=== PATIENT | female | born 1980 | race Two or more races ===

== ENCOUNTER 2018-11-27 06:24 | Emergency (ER) | payer OTHER ==
[~2018-11-27] VITALS: Ht 160 cm; Wt 65.3 kg
--- NOTE | 2018-11-27 06:45 | NUR ---
PT BIBSELF COMPLAINING OF PELVIC/ABD PAIN X 2 HOURS. PT STATES SHE PASSED OUT FROM THE PAIN. PT AXO4. RESPIRATIONS EVEN AND UNLABORED. PT PUT ON THE RETICLE PRINTER AND PULSE OX.
--- NOTE | 2018-11-27 06:49 | NUR ---
PT AMBULATORY WITH STEADY GAIT TO BATHROOM, URINE SAMPLE OBTAINED AND SENT TO LAB.
--- NOTE | 2018-11-27 06:50 | NUR ---
MATT PEÑALOZA AT BEDSIDE.
[2018-11-27] MEDS ORDERED: KETOROLAC TROMETHAMINE INJ 30 MG/ML VIAL IV ONE (07:00)
[2018-11-27] MEDS ORDERED: IV NS 0.9% 1,000 ML BAG IV ONE (07:00)
[2018-11-27 07:04] LABS: APPEARANCE,URINE SL CLOUDY (CLEAR); BILIRUBIN,URINE NEGATIVE (NEGATIVE); BLOOD, URINE 3+ Ery/uL (NEGATIVE); COLOR,URINE YELLOW (YELLOW); KETONES,URINE NEGATIVE (NEGATIVE); LEUKOCYTE ESTERASE ,URINE NEGATIVE (NEGATIVE); NITRITE, URINE NEGATIVE (NEGATIVE); PROTEIN,URINE TRACE mg/dl (NEGATIVE); UGLUCOSE NEGATIVE (NEGATIVE); UROBILINOGEN,URINE 0.2 EU/dL (0.2)
[2018-11-27 07:09] LABS: BACTERIA,URINE Few /HPF (None Seen); RBC,URINE TOO NUMEROUS TO COUN /HPF (0-2); SQUAMOUS EPITHELIAL CELL,UR Few /HPF (None Seen); WBC,URINE NONE SEEN /HPF (0-3)
[2018-11-27 07:09] LABS: BASOPHILS # (AUTO) 0.1 /CMM (0.0-0.2); BASOPHILS % (AUTO) 1.3 % (0.0-2.0); EOSINOPHILS % (AUTO) 3.1 % (0.0-6.0); HEMATOCRIT 40 % (33-45); HEMOGLOBIN 13.1 g/dL (11.5-14.8); LYMPHOCYTES # (AUTO) 1.1 /CMM (0.8-4.8); MEAN CORPUSCULAR HGB CONC 33 g/dl (31.0-36.0); MEAN CORPUSCULAR VOLUME 97 fL (82-100); MONOCYTES # (AUTO) 0.4 /CMM (0.1-1.30); MONOCYTES % (AUTO) 6.3 % (2.0-12.0); NEUTROPHILS # (AUTO) 4.3 /CMM (1.8-8.9); NEUTROPHILS % (AUTO) 71.3 % (43.0-81.0); PLATELET COUNT (AUTO) 246 /CMM (150-450); RED BLOOD CELL COUNT(AUTO) 4.12 MIL/uL (4.0-5.2)
[2018-11-27] MEDS ORDERED: KETOROLAC TROMETHAMINE INJ 30 MG/ML VIAL ONE (07:11)
[2018-11-27 07:15] LABS: CALCIUM, SERUM 8.3 mg/dL (8.5-10.1); CREATININE 0.9 mg/dL (0.6-1.3); POTASSIUM 4.2 mmol/L (3.5-5.1)
--- NOTE | 2018-11-27 07:20 | NUR ---
REPORT GIVEN TO LORE MEZA FOR [facility].
[2018-11-27 07:27] LABS: ALBUMIN 3.8 g/dL (3.4-5.0); BILIRUBIN,DIRECT 0.1 mg/dL (0.0-0.2); BILIRUBIN,TOTAL 0.4 mg/dL (0.2-1.0)
--- NOTE | 2018-11-27 08:37 | NUR ---
DISCHARGE INSTRUCTIONS GIVEN AND PATIENT VERBALIZED UNDERSTANDING. IV REMOVED WITH MINIMAL BLEEDING NOTED. PRESSURE DRESSING PLACED ON SITE. LEFT ER IN STABLE CONDITION AMBULATORY. NO SKIN BREAKDOWN, NO ACUTE DISTRESS, NO C/O PAIN OR DISCOMFORT
[2018-11-27 08:53] VITALS: BP 99/52
== END 2018-11-27 08:56 | disposition home or self-care (01) ==
LOC: ER 06:24
DX: R10.2 Pelvic and perineal pain (principal); Z98.890 Other specified postprocedural states
CPT/HCPCS: 36415; 76856; 80048; 80076; 81001; 83690; 84702; 84703; 85025; 96374; 99284; J1885; J7030; 81000-TC